=== PATIENT | male | born 1950 | race Caucasian/White ===

== ENCOUNTER 2017-11-09 17:45 | Emergency (ER) | payer MEDICARE, BC ==
[2017-11-09 18:05] VITALS: TEMP 98.4
--- NOTE | 2017-11-09 18:21 | ED ---
General Adult HPI - General Chief complaint: Nausea/Vomiting/Diarrhea Stated complaint: abdom pain Time Seen by Provider: 11/09/17 17:53 Source: patient, EMS, RN notes reviewed Mode of arrival: EMS Limitations: altered mental status - History of Present Illness Initial comments: This a 67-year-old male presents emergency department via EMS from [facility] for abdominal discomfort. Patient reportedly seemed to have some constipation and urinary retention issues. Patient had indwelling Graham catheter placed. Patient currently having Graham leg bag. Patient was given suppository, laxative and prune juice today did have the stools which were slightly mucousy in nature. They felt that he complained of pain when they pressed on his abdomen. Limited information from patient as he has expressive aphasia, has had multiple brain surgeries with recent graft skin noted on the left. Patient had no reported fevers no vomiting. - Related Data Home Medications Medication Instructions Recorded Confirmed Acetaminophen [Tylenol] 500 mg PO Q4-6H PRN 03/13/15 11/09/17 Allopurinol [Zyloprim] 100 mg PO DAILY 03/13/15 11/09/17 Bacitracin Oint 1 gm TOPICAL DAILY 03/13/15 11/09/17 Dutasteride [Avodart] 0.5 mg PO DAILY 03/13/15 11/09/17 Furosemide [Lasix] 40 mg PO BID 03/13/15 11/09/17 HYDROcodone/APAP 5-325MG [[place] 5] 1 tab PO Q4H PRN 03/13/15 11/09/17 Meclizine HCl 25 mg PO DAILY PRN 03/13/15 11/09/17 Tamsulosin HCl [Flomax] 0.4 mg PO DAILY 03/13/15 11/09/17 Zolpidem Tartrate [Ambien] 10 mg PO HS PRN 03/13/15 11/09/17 Zonisamide [Zonegran] 100 mg PO Q12HR 03/13/15 11/09/17 metFORMIN HCL [Glucophage] 500 mg PO BID 03/13/15 11/09/17 Bisacodyl [Dulcolax] 10 mg RECTAL DAILY PRN 11/09/17 11/09/17 Chlorhexidine Gluconate [Peridex] 15 ml PO BID 11/09/17 11/09/17 Clobetasol Propionate [Temovate 1 applic TOPICAL BID PRN 11/09/17 11/09/17 0.05% Cream] Fluticasone Nasal [place] [Flonase 2 spr EA NOSTRIL DAILY 11/09/17 11/09/17 Nasal [place]] Magnesium Hydroxide [Milk of 2,400 mg PO DAILY PRN 11/09/17 11/09/17 Magnesia] Na Phos,M-B/Na Phos,Di-Ba [Fleet 133 ml RECTAL DAILY PRN 11/09/17 11/09/17 Adult] Nafcillin [Nafcil] 2 gm IVPB Q5H 11/09/17 11/09/17 Phenytoin Sodium Extended 300 mg PO DAILY 11/09/17 11/09/17 [Dilantin] Phenytoin Sodium Extended 400 mg PO HS 11/09/17 11/09/17 [Dilantin] Polyethylene Glycol 3350 [Miralax] 17 gm PO DAILY PRN 11/09/17 11/09/17 Potassium Chloride 8 meq PO BID 11/09/17 11/09/17 amLODIPine [Norvasc] 5 mg PO DAILY 11/09/17 11/09/17 Previous Rx's Medication Instructions Recorded Levofloxacin [Levaquin] 500 mg PO DAILY #10 tab 11/09/17 Allergies Allergy/AdvReac Type Severity Reaction Status Date / Time No Known Allergies Allergy Verified 11/09/17 18:41 Review of Systems ROS Statement: Those systems with pertinent positive or pertinent negative responses have been documented in the HPI. ROS Other: All systems not noted in ROS Statement are negative. Past Medical History Past Medical History: Deep Vein Thrombosis (DVT), Eye Disorder, Seizure Disorder Additional Past Medical History / Comment(s): Blindness, Insomnia History of Any Multi-Drug Resistant Organisms: None Reported Past Surgical History: Hernia Repair Additional Past Surgical History / Comment(s): Brain Tumor removal Past Psychological History: No Psychological Hx Reported Smoking Status: Former smoker Past Alcohol Use History: None Reported Past Drug Use History: None Reported General Exam General appearance: alert, in no apparent distress Head exam: Absent: atraumatic, normocephalic, normal inspection (Large left- sided deformity with sutures in place, recent skin graft fold scarring noted to the right) Neck exam: Present: normal inspection, full ROM. Absent: tenderness, meningismus, lymphadenopathy Respiratory exam: Present: normal lung sounds bilaterally. Absent: respiratory distress, wheezes, rales, rhonchi, stridor Cardiovascular Exam: Present: regular rate, normal rhythm, normal heart sounds. Absent: systolic murmur, diastolic murmur, rubs, gallop, clicks GI/Abdominal exam: Present: soft, tenderness, normal bowel sounds, other (Old midline scar noted). Absent: distended, guarding, rebound, rigid Back exam: Absent: CVA tenderness (R), CVA tenderness (L) Skin exam: Present: warm, dry, intact, normal color. Absent: rash Course Vital Signs 11/09/17 11/09/17 11/09/17 18:01 19:11 19:55 Temperature 98.4 F Pulse Rate 94 92 92 Respiratory 18 18 17 Rate Blood Pressure 141/94 146/95 163/90 O2 Sat by Pulse 98 98 97 Oximetry Medical Decision Making - Medical Decision Making 67-year-old male presented from for suspected abdominal pain. Patient had CT which showed no acute abnormality for his stomach pain. He does have mild elevation of his amylase lipase significant this time. Patient well-hydrated he 's had good urine output in the Graham. Patient vitals are stable emergency department. There was evidence of slightly infiltrate on x-ray. He said no cough or chest congestion no fever though he'll be covered with antibiotics secondary CT findings. Patient was discharged back to [facility] - Lab Data Result diagrams: 11/09/17 18:20 11/09/17 18:20 Lab Results 11/09/17 11/09/17 11/09/17 Range/Units 18:20 18:20 18:20 WBC 12.8 H (3.8-10.6) k/uL RBC 4.79 (4.30-5.90) m/uL Hgb 14.5 (13.0-17.5) gm/dL Hct 43.3 (39.0-53.0) % MCV 90.3 (80.0-100.0) fL MCH 30.3 (25.0-35.0) pg MCHC 33.6 (31.0-37.0) g/dL RDW 14.3 (11.5-15.5) % Plt Count 297 (150-450) k/uL Neutrophils % 83 % Lymphocytes % 10 % Monocytes % 5 % Eosinophils % 1 % Basophils % 1 % Neutrophils # 10.6 H (1.3-7.7) k/uL Lymphocytes # 1.3 (1.0-4.8) k/uL Monocytes # 0.6 (0-1.0) k/uL Eosinophils # 0.1 (0-0.7) k/uL Basophils # 0.1 (0-0.2) k/uL Poikilocytosis Slight PT (9.0-12.0) sec INR (<1.2) APTT (22.0-30.0) sec Sodium 144 (137-145) mmol/L Potassium 3.3 L (3.5-5.1) mmol/L Chloride 106 (98-107) mmol/L Carbon Dioxide 25 (22-30) mmol/L Anion Gap 13 mmol/L BUN 14 (9-20) mg/dL Creatinine 0.80 (0.66-1.25) mg/dL Est GFR (CKD-EPI)AfAm >90 (>60 ml/min/1.73 sqM) Est GFR (CKD-EPI)NonAf >90 (>60 ml/min/1.73 sqM) Glucose 137 H (74-99) mg/dL Plasma Lactic Acid Talha 2.2 H* (0.7-2.0) mmol/L Calcium 8.9 (8.4-10.2) mg/dL Total Bilirubin 1.0 (0.2-1.3) mg/dL AST 20 (17-59) U/L ALT 16 L (21-72) U/L Alkaline Phosphatase 112 (38-126) U/L Total Protein 7.3 (6.3-8.2) g/dL Albumin 4.0 (3.5-5.0) g/dL Amylase 136 H (30-110) U/L Lipase 414 H (23-300) U/L Urine Color Urine Appearance (Clear) Urine pH (5.0-8.0) Ur Specific [place] (1.001-1.035) Urine Protein (Negative) Urine Glucose (UA) (Negative) Urine Ketones (Negative) Urine Blood (Negative) Urine Nitrite (Negative) Urine Bilirubin (Negative) Urine Urobilinogen (<2.0) mg/dL Ur Leukocyte Esterase (Negative) 11/09/17 11/09/17 Range/Units 18:20 18:20 WBC (3.8-10.6) k/uL RBC (4.30-5.90) m/uL Hgb (13.0-17.5) gm/dL Hct (39.0-53.0) % MCV (80.0-100.0) fL MCH (25.0-35.0) pg MCHC (31.0-37.0) g/dL RDW (11.5-15.5) % Plt Count (150-450) k/uL Neutrophils % % Lymphocytes % % Monocytes % % Eosinophils % % Basophils % % Neutrophils # (1.3-7.7) k/uL Lymphocytes # (1.0-4.8) k/uL Monocytes # (0-1.0) k/uL Eosinophils # (0-0.7) k/uL Basophils # (0-0.2) k/uL Poikilocytosis PT 10.8 (9.0-12.0) sec INR 1.1 (<1.2) APTT 21.9 L (22.0-30.0) sec Sodium (137-145) mmol/L Potassium (3.5-5.1) mmol/L Chloride (98-107) mmol/L Carbon Dioxide (22-30) mmol/L Anion Gap mmol/L BUN (9-20) mg/dL Creatinine (0.66-1.25) mg/dL Est GFR (CKD-EPI)AfAm (>60 ml/min/1.73 sqM) Est GFR (CKD-EPI)NonAf (>60 ml/min/1.73 sqM) Glucose (74-99) mg/dL Plasma Lactic Acid Talha (0.7-2.0) mmol/L Calcium (8.4-10.2) mg/dL Total Bilirubin (0.2-1.3) mg/dL AST (17-59) U/L ALT (21-72) U/L Alkaline Phosphatase (38-126) U/L Total Protein (6.3-8.2) g/dL Albumin (3.5-5.0) g/dL Amylase (30-110) U/L Lipase (23-300) U/L Urine Color Light Yellow Urine Appearance Clear (Clear) Urine pH 7.0 (5.0-8.0) Ur Specific [place] 1.006 (1.001-1.035) Urine Protein Negative (Negative) Urine Glucose (UA) Negative (Negative) Urine Ketones Negative (Negative) Urine Blood Negative (Negative) Urine Nitrite Negative (Negative) Urine Bilirubin Negative (Negative) Urine Urobilinogen <2.0 (<2.0) mg/dL Ur Leukocyte Esterase Negative (Negative) Disposition Clinical Impression: Pneumonia, Diarrhea, Abdominal pain Disposition: HOME SELF-CARE Condition: Stable Instructions: Pneumonia (ED) Additional Instructions: Please return to the Emergency Department if symptoms worsen or any other concerns. Prescriptions: Levofloxacin [Levaquin] 500 mg PO DAILY #10 tab Referrals: Tyshawn Henry MD [Primary Care Provider] - 1-2 days Time of Disposition: 20:20
[2017-11-09 18:33] LABS: Basophils # (A) 0.1 k/uL (0-0.2); Basophils % (A) 1 %; Eosinophils # (A) 0.1 k/uL (0-0.7); Eosinophils % (A) 1 %; HCT 43.3 % (39.0-53.0); HGB 14.5 gm/dL (13.0-17.5); Lymphocytes # (A) 1.3 k/uL (1.0-4.8); Lymphocytes % (A) 10 %; MCH 30.3 pg (25.0-35.0); MCHC 33.6 g/dL (31.0-37.0); MCV 90.3 fL (80.0-100.0); Mean Platelet Volume 6.8; Monocytes # (A) 0.6 k/uL (0-1.0); Monocytes % (A) 5 %; Neutrophils # (A) 10.6 k/uL (1.3-7.7); Neutrophils % (A) 83 %; Platelet Count 297 k/uL (150-450); Poikilocytosis Slight; RBC 4.79 m/uL (4.30-5.90); RDW 14.3 % (11.5-15.5); WBC 12.8 k/uL (3.8-10.6)
[2017-11-09 18:36] LABS: Appearance,Urine Clear (Clear); Bilirubin,Urine Negative (Negative); Blood,Urine Negative (Negative); Color,Urine Light Yellow; Glucose,Urine (UA) Negative (Negative); Ketones,Urine Negative (Negative); Leukocyte Esterase,Urine Negative (Negative); Nitrite,Urine Negative (Negative); Protein,Urine Negative (Negative); Specific Gravity,Urine 1.006 (1.001-1.035); Urobilinogen,Urine <2.0 mg/dL (<2.0)
[2017-11-09 18:46] LABS: ALT 16 U/L (21-72); AST 20 U/L (17-59); Alkaline Phosphatase 112 U/L (38-126); Amylase 136 U/L (30-110); Anion Gap 13 mmol/L; Blood Urea Nitrogen 14 mg/dL (9-20); Calcium 8.9 mg/dL (8.4-10.2); Carbon Dioxide 25 mmol/L (22-30); Chloride 106 mmol/L (98-107); Glucose 137 mg/dL (74-99); Lipase 414 U/L (23-300); Potassium 3.3 mmol/L (3.5-5.1); Sodium 144 mmol/L (137-145); Total Protein 7.3 g/dL (6.3-8.2)
--- NOTE | 2017-11-09 18:49 | XR ---
EXAMINATION TYPE: XR KUB DATE OF EXAM: 11/09/2017 COMPARISON: NONE HISTORY: Abdominal pain TECHNIQUE: 2 views FINDINGS: There is no sign of intestinal obstruction or pneumoperitoneum. Fecal pattern is normal. Th ere are surgical clips over the left mid abdomen. There are clips in the right upper quadrant. There is blunting of right costophrenic angle. There are no pathologic calcifications over the kidneys. IMPRESSION: Right pleural effusion. Right lower lobe pneumonia is possible. Nonacute abdomen. There is a possible 1.5 cm bladder calculus.
[2017-11-09 18:50] LABS: INR 1.1 (<1.2); Prothrombin Time 10.8 sec (9.0-12.0)
[2017-11-09 18:59] LABS: Partial Thromboplastin Time 21.9 sec (22.0-30.0)
[2017-11-09] MEDS ORDERED: RX INFO: IV CONTRAST WAS GIVEN 1 EACH MISC MISCELLANE PRN (19:15)
--- NOTE | 2017-11-09 19:21 | XR ---
EXAMINATION TYPE: XR chest 2V DATE OF EXAM: 11/09/2017 COMPARISON: NONE HISTORY: Abdominal pain TECHNIQUE: Frontal and lateral views of the chest are obtained. FINDINGS: There is no heart failure nor confluent pneumonic infiltrate. Costophrenic angles are estela r. There is left side central venous catheter with tip in the superior vena cava. There is slight dmitry vated right diaphragm. IMPRESSION: Mild right diaphragm elevation could relate to partial paralysis. No heart failure. No p ulmonary consolidation.
--- NOTE | 2017-11-09 20:15 | CT ---
EXAMINATION TYPE: CT abdomen pelvis w con DATE OF EXAM: 11/09/2017 COMPARISON: NONE HISTORY: Constipation, evealted lactic and mucous in stool. CT DLP: 1156.4 mGycm Automated exposure control for dose reduction was used. TECHNIQUE: Helical acquisition of images was performed from the lung bases through the pelvis. CONTRAST: Performed without Oral Contrast and with IV Contrast, patient injected with 100 mL of Omnipaque 300. FINDINGS: There is patchy infiltrate and atelectasis at the lung bases. There is no pericardial effusion. There is no definite pleural effusion. There are clips from cholecystectomy. There is apparent partial resection of the right lobe of the li alejandro. Left lobe of the liver is large. Spleen appears normal. There is no pancreatic mass. Bile ducts are not dilated. There is no adrenal mass. Kidneys show satisfactory contrast opacification. There is no hydronephrosi s. There is no retroperitoneal adenopathy. Abdominal aorta is atheromatous. There is mild aneurysm of the lower abdominal aorta measures up to 3 cm. There is a Graham catheter in the urinary bladder. I see no intestinal wall thickening. There are no d ilated loops. There is no sign of a bowel obstruction. There is no sign of appendicitis. Appendix renan ears normal. I see no bony destructive process. There is no compression fracture. IMPRESSION: MILD INFILTRATE AND ATELECTASIS AT THE LUNG BASES. THERE IS APPARENT PREVIOUS LIVER SURGERY. NO DILATED DUCTS. NORMAL APPENDIX. NO ACUTE ABNORMALITY SEE N WITHIN THE ABDOMEN AND PELVIS. 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
[2017-11-09 20:40] VITALS: BP 155/92; PULSE 94; RESP 18
== END 2017-11-09 20:53 | disposition home or self-care (01) ==
LOC: EC 17:45
DX: J18.9 Pneumonia, unspecified organism (principal); R10.9 Unspecified abdominal pain; R19.7 Diarrhea, unspecified; R74.8 Abnormal levels of other serum enzymes; R47.01 Aphasia; H54.7 Unspecified visual loss; G40.909 Epilepsy, unspecified, not intractable, without status epilepticus; Z87.891 Personal history of nicotine dependence; Z79.51 Long term (current) use of inhaled steroids; Z79.84 Long term (current) use of oral hypoglycemic drugs; Z79.899 Other long term (current) drug therapy; Z98.890 Other specified postprocedural states
CPT/HCPCS: 36415; 80053; 82150; 83605; 83690; 85025; 85610; 85730; 81003; 71046; 74018; 74177; 99285; Q9967

== ENCOUNTER 2017-11-20 21:14 | Emergency (ER) | payer MEDICARE, BC ==
[2017-11-20 21:26] VITALS: RESP 18; TEMP 97.6
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
[2017-11-20 22:52] VITALS: BP 133/79; PULSE 88
== END 2017-11-20 23:51 ==
LOC: EC 21:14
DX: Z48.89 Encounter for other specified surgical aftercare (principal); G40.909 Epilepsy, unspecified, not intractable, without status epilepticus; Z94.5 Skin transplant status; Z87.891 Personal history of nicotine dependence; Z98.890 Other specified postprocedural states; Z79.84 Long term (current) use of oral hypoglycemic drugs; Z79.51 Long term (current) use of inhaled steroids; Z79.899 Other long term (current) drug therapy
CPT/HCPCS: 36415; 80185; 83605; 99285

== ENCOUNTER 2018-07-20 01:27 | Emergency (ER) | payer MEDICARE, BC ==
[2018-07-20 01:36] VITALS: TEMP 97.5
[2018-07-20] MEDS ORDERED: LIDOCAINE URO-JET JELLY 2% 5 ML KIT URETHRAL ONE (01:45)
[2018-07-20 02:49] LABS: HCT 49.4 % (39.0-53.0); HGB 16.7 gm/dL (13.0-17.5); MCH 31.2 pg (25.0-35.0); MCHC 33.8 g/dL (31.0-37.0); MCV 92.4 fL (80.0-100.0); Mean Platelet Volume 7.9; Platelet Count 130 k/uL (150-450); RBC 5.35 m/uL (4.30-5.90); RDW 13.7 % (11.5-15.5); WBC 25.2 k/uL (3.8-10.6)
[2018-07-20 02:57] LABS: Band Neutrophils % 25 %; Metamyelocytes # (M) 1.01 k/uL (0); Metamyelocytes % 4 %; Monocytes # (M) 1.01 k/uL (0-1.0); Neutrophils % (M) 67 %; Nucleated Red Blood Cells 0 /100 WBC (0-0); Total Cells Counted 100
[2018-07-20 02:58] LABS: Total Bilirubin 1.3 mg/dL (0.2-1.3)
--- NOTE | 2018-07-20 03:07 | XR ---
EXAMINATION TYPE: XR chest 1V portable DATE OF EXAM: 07/20/2018 COMPARISON: 11/09/2017 HISTORY: Fever TECHNIQUE: Single frontal view of the chest is obtained. FINDINGS: There is elevated right diaphragm. There is atelectasis at the right lung base. There is n o heart failure. Lungs appear clear of consolidation. Bony thorax appears intact. IMPRESSION: Chronic elevated right diaphragm consistent with paralysis that has progressed compared to old exam. No heart failure seen. Minimal atelectasis at the left lung base is new compared to old exam. Atelectasis is worse at the right lung base compared to old exam.
[2018-07-20 03:19] LABS: Potassium 5.2 mmol/L (3.5-5.1)
[2018-07-20 03:20] LABS: Total Protein 7.4 g/dL (6.3-8.2)
--- NOTE | 2018-07-20 03:23 | CT ---
EXAMINATION TYPE: CT abdomen pelvis wo con DATE OF EXAM: 07/20/2018 COMPARISON: 11/09/2017 HISTORY: abdominal pain and gross hematuria. CT DLP: 1086.4 mGycm Automated exposure control for dose reduction was used. TECHNIQUE: Helical acquisition of images was performed from the lung bases through the pelvis. FINDINGS: There is elevated right diaphragm. There is atelectasis at the right lung base. There is mild atelect asis at the left lung base. Heart size is normal. There is no pericardial effusion. There is no pleur al effusion. Liver shows no focal defect. Spleen appears normal. Gallbladder appears absent. There is no evidence of a pancreatic mass. There is no adrenal mass. Kidneys show no hydronephrosis. I see no renal mass. Ureters are not dilate d. There is no retroperitoneal adenopathy. Abdominal aorta is atheromatous. Bladder is almost empty. There is small amount of air in the urinary bladder probably from catheterization. Prostate is enlarg ed and measures 5.4 cm. There is no inguinal hernia. There is no evidence of a bowel obstruction. The re is no sign of free air. There is no mesenteric adenopathy or edema. The appendix appears normal. T here is thinning of the anterior abdominal wall. No hernia seen. The bony pelvis appears intact. Lumbar spine is intact. There is no compression fracture. IMPRESSION: ENLARGED PROSTATE UNCHANGED. SMALL AMOUNT OF AIR IN THE BLADDER PROBABLY FROM CATHETERIZATION. NO HILDA DENCE OF RENAL OBSTRUCTION. NORMAL APPENDIX. 3 CM ANEURYSM OF THE LOWER ABDOMINAL AORTA UNCHANGED. CHRONIC ELEVATED RIGHT DIAPHRAGM WITH ATELECTASIS NOT SIGNIFICANTLY DIFFERENT THAN LAST EXAM. I do not see a cause for hematuria.
[2018-07-20 03:33] LABS: INR 1.1 (<1.2); Partial Thromboplastin Time 22.5 sec (22.0-30.0); Prothrombin Time 10.5 sec (9.0-12.0)
--- NOTE | 2018-07-20 03:39 | ED ---
General Adult HPI - General Chief complaint: Urogenital Stated complaint: Hematuria Time Seen by Provider: 07/20/18 01:34 Source: EMS Mode of arrival: EMS Limitations: physical limitation (History of brain injury) - History of Present Illness Initial comments: This patient is a 68-year-old man transferred from jail to be evaluated for hematuria. Was reported that the patient's indwelling Graham catheter had become displaced. The catheter was changed and it was noted that the new one was draining a large amount of blood. The patient is not able to give any additional history. He does have history of traumatic brain injury. -: hour(s) - Related Data Home Medications Medication Instructions Recorded Confirmed Acetaminophen [Tylenol] 500 mg PO Q4H PRN 03/13/15 11/20/17 Allopurinol [Zyloprim] 100 mg PO DAILY 03/13/15 11/20/17 Dutasteride [Avodart] 0.5 mg PO DAILY 03/13/15 11/20/17 Furosemide [Lasix] 40 mg PO BID 03/13/15 11/20/17 HYDROcodone/APAP 5-325MG [Deputy 5] 1 tab PO Q4H PRN 03/13/15 11/20/17 Meclizine HCl 25 mg PO TID PRN 03/13/15 11/20/17 Tamsulosin HCl [Flomax] 0.4 mg PO DAILY 03/13/15 11/20/17 Zolpidem Tartrate [Ambien] 10 mg PO HS PRN 03/13/15 11/20/17 Zonisamide [Zonegran] 100 mg PO Q12HR 03/13/15 11/20/17 metFORMIN HCL [Glucophage] 500 mg PO BID 03/13/15 11/20/17 Bisacodyl [Dulcolax] 10 mg RECTAL DAILY PRN 11/09/17 11/20/17 Chlorhexidine Gluconate [Peridex] 15 ml PO BID 11/09/17 11/20/17 Clobetasol Propionate [Temovate 1 applic TOPICAL BID PRN 11/09/17 11/20/17 0.05% Cream] Fluticasone Nasal [place] [Flonase 2 spr EA NOSTRIL DAILY 11/09/17 11/20/17 Nasal [place]] Magnesium Hydroxide [Milk of 2,400 mg PO DAILY PRN 11/09/17 11/20/17 Magnesia] Na Phos,M-B/Na Phos,Di-Ba [Fleet 133 ml RECTAL DAILY PRN 11/09/17 11/20/17 Adult] Nafcillin [Nafcil] 2 gm IVPB Q6H 11/09/17 11/20/17 Phenytoin Sodium Extended 300 mg PO QAM 11/09/17 11/20/17 [Dilantin] Phenytoin Sodium Extended 400 mg PO HS 11/09/17 11/20/17 [Dilantin] Polyethylene Glycol 3350 [Miralax] 17 gm PO DAILY 11/09/17 11/20/17 Potassium Chloride 8 meq PO BID 11/09/17 11/20/17 amLODIPine [Norvasc] 5 mg PO DAILY 11/09/17 11/20/17 Allergies Allergy/AdvReac Type Severity Reaction Status Date / Time No Known Allergies Allergy Verified 07/20/18 01:34 Review of Systems ROS Statement: Those systems with pertinent positive or pertinent negative responses have been documented in the HPI. ROS Other: All systems not noted in ROS Statement are negative. Limitations: ROS unobtainable due to patients medical condition Past Medical History Past Medical History: Deep Vein Thrombosis (DVT), Eye Disorder, Seizure Disorder Additional Past Medical History / Comment(s): Blindness, Insomnia, Skin graft to head, traumatic brain injury History of Any Multi-Drug Resistant Organisms: None Reported Past Surgical History: Hernia Repair Additional Past Surgical History / Comment(s): Brain Tumor removal Past Psychological History: No Psychological Hx Reported Smoking Status: Former smoker Past Alcohol Use History: None Reported Past Drug Use History: None Reported General Exam General appearance: alert Head exam: Present: other (Patient has chronic postsurgical deformity. No acute evidence of trauma.). Absent: normal inspection Eye exam: Present: PERRL. Absent: scleral icterus, conjunctival injection, periorbital swelling, periorbital tenderness ENT exam: Present: mucous membranes dry Neck exam: Present: normal inspection, full ROM. Absent: tenderness Respiratory exam: Present: respiratory distress (Mild tachypnea), rhonchi. Absent: wheezes, rales, stridor Cardiovascular Exam: Present: normal rhythm, tachycardia, normal heart sounds. Absent: systolic murmur, diastolic murmur, rubs, gallop GI/Abdominal exam: Present: soft. Absent: distended, tenderness, guarding, rebound exam: Present: other (Patient has a Graham catheter present. There is a small amount of blood from the urethral meatus around the catheter. The catheter is draining blood. There does appear to have been some previous erosion of the urethral meatus.) Extremities exam: Present: normal inspection, normal capillary refill. Absent: pedal edema Neurological exam: Present: alert Skin exam: Present: warm, dry, intact, normal color. Absent: rash Course Vital Signs 07/20/18 07/20/18 07/20/18 01:29 03:00 03:30 Temperature 97.5 F L Pulse Rate 111 H 112 H 112 H Respiratory 16 20 49 H Rate Blood Pressure 80/52 73/54 78/56 O2 Sat by Pulse 93 L Oximetry 07/20/18 07/20/18 07/20/18 03:46 04:00 04:30 Temperature Pulse Rate 115 H 110 H 111 H Respiratory 20 46 H 56 H Rate Blood Pressure 99/45 99/45 110/32 O2 Sat by Pulse 91 L 87 L 90 L Oximetry 07/20/18 07/20/18 05:00 05:30 Temperature Pulse Rate 113 H 97 Respiratory 34 H Rate Blood Pressure 99/44 66/48 O2 Sat by Pulse 89 L 88 L Oximetry - Reevaluation(s) Reevaluation #1: 07/20/18 06:50 I did discuss the case with Dr. Dowling as well as the medical observer who has stated that the patient may be release for disposition. Procedures - Central Line Placement Right Femoral Consent Obtained: emergent situation Time Out Performed: Yes Patient Placed on Monitor/Pulse Ox: Yes Prep: mask, gown, gloves Central Line Prep: Povidone-Iodine 1%, sterile drapes applied Local Anesthesia Used: Lidocaine 1% Ultrasound Used for Placement: Yes Central Line Lumen Inserted: triple Central Line Position: good blood return, all ports aspirated, flushed, capped, sutured in place with nylon Dressing Applied: Tegaderm Patient Tolerated Procedure: well Additional Comments: Indication for line placement is no peripheral IV access, and diagnosis of severe sepsis. I did make one attempt to place the IV line in the patient's left subclavian area, but was not able to cannulate the vein. Rather than risk pneumothorax decision was made to attempt placement in the femoral area. Chest x-ray was obtained and does not show any evidence of pneumothorax. I did make an attempt to place a line and left femoral area but it appears the artery was cannulated. Therefore moved to the right femoral area. I did use ultrasound which shows that the patient's artery is overlying the vein making this placement somewhat more difficult. I was able to place the triple lumen central venous catheter. There was good blood return. IV fluids are started as well as antibiotics. Medical Decision Making - Medical Decision Making Patient is 68-year-old man in from jail, found to have severe sepsis and based on his clinical exam and x-ray does appear to have pneumonia. The patient is started on healthcare associated antibiotics. Also fluid bolus for severe sepsis. The patient's paperwork is reviewed and does show recent paperwork showing his desire to not have intubation/CPR. Have paged the admitting physician, and will call the logistics service representative as well. - Lab Data Result diagrams: 07/20/18 02:30 07/20/18 02:30 Lab Results 07/20/18 07/20/18 07/20/18 Range/Units 02:30 02:30 03:05 WBC 25.2 H (3.8-10.6) k/uL RBC 5.35 (4.30-5.90) m/uL Hgb 16.7 (13.0-17.5) gm/dL Hct 49.4 (39.0-53.0) % MCV 92.4 (80.0-100.0) fL MCH 31.2 (25.0-35.0) pg MCHC 33.8 (31.0-37.0) g/dL RDW 13.7 (11.5-15.5) % Plt Count 130 L (150-450) k/uL Neutrophils % (Manual) 67 % Band Neutrophils % 25 % Monocytes % (Manual) 4 % Metamyelocytes % 4 % Neutrophils # (Manual) 23.10 H (1.3-7.7) k/uL Monocytes # (Manual) 1.01 H (0-1.0) k/uL Metamyelocytes # (Man) 1.01 H (0) k/uL Nucleated RBCs 0 (0-0) /100 WBC Manual Slide Review Performed PT 10.5 (9.0-12.0) sec INR 1.1 (<1.2) APTT 22.5 (22.0-30.0) sec Sodium 141 (137-145) mmol/L Potassium 5.2 H (3.5-5.1) mmol/L Chloride 103 (98-107) mmol/L Carbon Dioxide 12 L (22-30) mmol/L Anion Gap 26 mmol/L BUN 26 H (9-20) mg/dL Creatinine 2.76 H (0.66-1.25) mg/dL Est GFR (CKD-EPI)AfAm 26 (>60 ml/min/1.73 sqM) Est GFR (CKD-EPI)NonAf 22 (>60 ml/min/1.73 sqM) Glucose 219 H (74-99) mg/dL Lactic Ac Sepsis Rflx Plasma Lactic Acid Talha (0.7-2.0) mmol/L Calcium 9.0 (8.4-10.2) mg/dL Total Bilirubin 1.3 (0.2-1.3) mg/dL AST 96 H (17-59) U/L ALT 32 (21-72) U/L Alkaline Phosphatase 86 (38-126) U/L Total Protein 7.4 (6.3-8.2) g/dL Albumin 4.0 (3.5-5.0) g/dL 07/20/18 07/20/18 Range/Units 03:05 03:59 WBC (3.8-10.6) k/uL RBC (4.30-5.90) m/uL Hgb (13.0-17.5) gm/dL Hct (39.0-53.0) % MCV (80.0-100.0) fL MCH (25.0-35.0) pg MCHC (31.0-37.0) g/dL RDW (11.5-15.5) % Plt Count (150-450) k/uL Neutrophils % (Manual) % Band Neutrophils % % Monocytes % (Manual) % Metamyelocytes % % Neutrophils # (Manual) (1.3-7.7) k/uL Monocytes # (Manual) (0-1.0) k/uL Metamyelocytes # (Man) (0) k/uL Nucleated RBCs (0-0) /100 WBC Manual Slide Review PT (9.0-12.0) sec INR (<1.2) APTT (22.0-30.0) sec Sodium (137-145) mmol/L Potassium (3.5-5.1) mmol/L Chloride (98-107) mmol/L Carbon Dioxide (22-30) mmol/L Anion Gap mmol/L BUN (9-20) mg/dL Creatinine (0.66-1.25) mg/dL Est GFR (CKD-EPI)AfAm (>60 ml/min/1.73 sqM) Est GFR (CKD-EPI)NonAf (>60 ml/min/1.73 sqM) Glucose (74-99) mg/dL Lactic Ac Sepsis Rflx Y Plasma Lactic Acid Talha 14.3 H* (0.7-2.0) mmol/L Calcium (8.4-10.2) mg/dL Total Bilirubin (0.2-1.3) mg/dL AST (17-59) U/L ALT (21-72) U/L Alkaline Phosphatase (38-126) U/L Total Protein (6.3-8.2) g/dL Albumin (3.5-5.0) g/dL - EKG Data EKG shows normal: sinus rhythm, intervals (ME interval 168 ms,normal. QRS duration 122 ms, prolonged and consistent with the right bundle-branch block. QTC 458 ms, normal.), QRS complexes (Right bundle-branch block) Rate: tachycardia (Rate 113 bpm) Critical Care Time Critical Care Time: Yes (40 minutes) Disposition Clinical Impression: Severe sepsis, Hypotension, Lactic acidosis Disposition: Is patient prescribed a controlled substance at d/c from ED?: No Referrals: Tyshawn Henry MD [Primary Care Provider] - 1-2 days Preliminary Cause of : severe sepsis
[2018-07-20] MEDS ORDERED: LEVOFLOXACIN 750MG-D5W PMX 750 MG in DEXTROSE/WATER 1 150ML.BAG IVPB STA (03:42)
[2018-07-20] MEDS ORDERED: SODIUM CHLORIDE 0.9% 2,000 ML IV ONE (04:00)
[2018-07-20] MEDS ORDERED: SODIUM CHLORIDE 0.9% 1,000 ML IV ONE (05:34)
[2018-07-20] MEDS ORDERED: PIPERACILLIN-TAZOBACTAM 3.375 GM in SODIUM CHLORIDE 0.9% 100 ML IVPB STA (05:34)
[2018-07-20 05:52] VITALS: BP 66/48; PULSE 97; RESP 34
--- NOTE | 2018-07-20 05:58 | XR ---
EXAM: XR Chest, 1 View CLINICAL HISTORY: ITS.REASON XR Reason: R/O PTX TECHNIQUE: Frontal view of the chest. COMPARISON: 07/20/18 FINDINGS: Stable elevation of the right hemidiaphragm. Adjacent atelectasis. Persistent opacities in the left base also favor atelectasis but nonspecific. Low lung volume. Overall similar appearance to the previous exam given slight differences in projection. No visualized pneumothorax. No evidence for significant effusion. No other significant interval changes from recent previous exam. IMPRESSION: No visualized pneumothorax on this projection. No significant interval change from the recent previous exam.
[2018-07-20] MEDS ORDERED: PIPERACILLIN-TAZOBACTAM 3.375 GM in SODIUM CHLORIDE 0.9% 100 ML IVPB SCH (16:00)
--- NOTE | 2018-07-23 00:17 | CDI ---
Documentation Clarification OP Dear Dr. Michael Potts Please do addendum to ED report for missing Clinical impression & Disposition. Thank you, Baudilio [employer] If you have any questions, please contact Control Clerk at [phone] [facility]
== END 2018-07-20 07:13 | disposition expired ==
LOC: EC 01:27
DX: A41.9 Sepsis, unspecified organism (principal); R65.20 Severe sepsis without septic shock; I95.9 Hypotension, unspecified; E87.2 Acidosis; G40.909 Epilepsy, unspecified, not intractable, without status epilepticus; Z87.891 Personal history of nicotine dependence; Z87.820 Personal history of traumatic brain injury; Z79.84 Long term (current) use of oral hypoglycemic drugs; Z79.899 Other long term (current) drug therapy
CPT/HCPCS: 99291; 36556; 96365; 96368; 36415; 93005; 80053; 83605; 85025; 85610; 85730; 87040; 87077; 87186; 71045; 74176; J2543; J1956; 51798